=== PATIENT | male | born 1960 | race African-American/Black ===

== ENCOUNTER 2017-02-16 09:33 | Outpatient (CLI) | payer MEDICAID ==
--- NOTE | 2017-02-16 12:11 | MRI Report ---
EXAM: MRI LUMBAR SPINE WITHOUT CONTRAST EXAM DATE: 02/16/2017 10:14 AM. CLINICAL HISTORY: Right hip pain for 2 years. Numbness and tingling down the right leg after lifting lawnmower. Spondylolisthesis. COMPARISON: None. TECHNIQUE: Multiplanar, multisequence T1-weighted and fluid-sensitive sequences of the lumbar spine f rom T12 to S1 without contrast. Other: None. FINDINGS: Spinal Cord: The conus terminates at L1. The conus medullaris and cauda equina are unremarkable. Alignment: Grade 1 anterolisthesis of L4 on L5 measures 5 mm. Grade 1 retrolisthesis of L1 on L2 liseth ures 5 mm. Bone Marrow: Five [id number] lumbar vertebral bodies are assumed. No acute fractures. There are chronic bilateral L5 pars defects. Tip and endplate changes at L4-L5 and L5-S1. Disk Levels/Facets: T11-T12: A minimal posterior disk protrusion results in minimal spinal canal narrowing. T12-l1: Moderate disk height loss is accompanied by desiccation and anterior endplate spurring. A bro ad-based disk bulge causes moderate spinal canal and mild bilateral foraminal narrowing. L1-L2: Disk is desiccated moderate height loss. A broad-based disk bulge results in moderate spinal c anal and mild bilateral foraminal narrowing. L2-L3: A broad-based disk bulge and mild ligamentum flavum hypertrophy cause severe spinal canal and minimal bilateral foraminal narrowing. L3-L4: The disk is desiccated with mild height loss. A broad-based disk bulge and left paracentral pr otrusion causes moderate spinal canal, severe left subarticular zone and mild bilateral foraminal francesca rowing. L4-L5: The disk is desiccated with moderate height loss. A broad-based disk bulge and mild facet oper ative results in mild spinal canal and moderate bilateral foraminal narrowing. L5-S1: The disk is desiccated with moderate height loss. The anterolisthesis and a broad-based disk b ulge cause severe bilateral foraminal narrowing. Both L5 nerve roots are compressed in the superior t o inferior dimension within the neural foramina. Musculature: Normal. No edema or fatty atrophy. Other: The partially visualized retroperitoneum is unremarkable. IMPRESSION: 1. Grade 1 retrolisthesis of L1 on L2. 2. Grade 1 anterolisthesis of L4 on L5 due to bilateral L5 pars defects. 3. Moderate spinal canal and mild bilateral foraminal narrowing at T12/L1 due to disk bulge. 4. Moderate spinal canal and mild bilateral foraminal narrowing at L1-L2 due to disk bulge. 5. Severe spinal canal narrowing at L2-L3 due to disk and posterior element degenerative changes. 6. Moderate spinal canal, severe left subarticular zone, mild bilateral foraminal narrowing at L3-L4 due to disk bulge/protrusion. 7. Mild spinal canal and moderate bilateral foraminal narrowing at L4-L5 due to disk bulge. 8. Severe bilateral foraminal narrowing at L5-S1 due to the anterolisthesis and a disk bulge. Comment: The following findings are so common in adults without low back pain that while we report th eir presence, they must be interpreted with caution and in the context of the clinical situation. (Re iliana Contreras et al, Spine 2001) Prevalence of findings in patients without low back pain: Disk degeneration (any evidence): 92% Disk desiccation/T2 signal loss: 83% Disk height loss: 56% Disk bulge: 64% Disk protrusion: 32% Annular tear/high intensity zone: 38% [facility] Referring Provider Line: [phone] SITE ID: [id number]
== END 2017-02-16 09:34 | disposition home or self-care (01) ==
LOC: DI 09:33
PROVIDERS: ATTEND Nurse Practitioner Family
DX: M43.06 Spondylolysis, lumbar region (principal); M51.24 Other intervertebral disc displacement, thoracic region; M51.26 Other intervertebral disc displacement, lumbar region; M51.37 Other intervertebral disc degeneration, lumbosacral region; M51.36 Other intervertebral disc degeneration, lumbar region; M43.16 Spondylolisthesis, lumbar region
CPT/HCPCS: 72148